=== PATIENT | female | born 1960 | race African-American/Black ===

== ENCOUNTER → 2017-02-17 | Outpatient (CLI) | payer SELFPAY ==
[~2017-02-17] MED LIST: ARTHROTEC 751 TABLET PO; ASPIRIN EC325 MG PO; BACTRIM,SEPT1 TABLET; BENICAR HCT 401 EACH PO; BENICAR40 MG PO; CALCIUM 500 MG1 EACH PO; CALCIUM CITRAT1 EA18 PO; CALCIUM/MAGNES1 EACH PO; CARDIZEM90 MG PO; CELEBREX100 MG PO; CELEBREX200 MG PO; CELEXA40 MG PO; COLACE100 MG PO; ELAVIL10 MG PO; ENDOCET 5-3251 EACH PO; FLEXERIL10 MG PO; GLUCOPHAGE1000 MG PO; HYDROCHLOROTH12.5 M3 PO; IRON325 MG PO; JANUMET 50/11 TABLET PO; KEFLEX500 MG PO; LEXAPRO20 MG PO; LOVENOX40 MG/0.4 SC; MITRAZOL 2% CRE45 GM PO; MULTIPLE VITAM1 EAC1 PO; NEXIUM40 MG PO; NORVASC10 MG PO; OXYCODONE-APAP1 EACH PO; PEPCID20 MG PO; PEPCID40 MG PO; PERCOCET 5/31 TABLET PO; PROTONIX40 MG PO; PROVENTIL HFA6.7 GM IH; SENNA PLUS TAB1 EACH PO; SINGULAIR10 MG PO; TRAZODONE HCL50 MG PO; VITAMIN B-6100 MG PO; VITAMIN D1000 INTUN PO; VITAMIN D2000 UNIT PO; ZOCOR20 MG PO; ZOVIRAX800 M1 PO; ZYRTEC10 M3 PO
== END | disposition home or self-care (01) ==
LOC: RAD 13:34
DX: M19.042 Primary osteoarthritis, left hand (principal); Z98.890 Other specified postprocedural states
CPT/HCPCS: 73130

== ENCOUNTER → 2017-03-06 | Outpatient (CLI) | payer SELFPAY | END | disposition home or self-care (01) | LOC: RAD 14:23 | DX: R05 Cough (principal); R06.2 Wheezing | CPT/HCPCS: 71020 ==

== ENCOUNTER → 2017-04-24 | Outpatient (CLI) | payer SELFPAY | END | disposition home or self-care (01) | LOC: RAD 13:00 | DX: E04.2 Nontoxic multinodular goiter (principal) | CPT/HCPCS: 73030; 76536 ==

== ENCOUNTER → 2017-05-01 | Outpatient (CLI) | payer SELFPAY | END | disposition home or self-care (01) | LOC: MRI 13:01 → RAD 13:30 → MRI 13:30 | DX: S46.012D Strain of muscle(s) and tendon(s) of the rotator cuff of left shoulder, subsequent encounter (principal); S46.212D Strain of muscle, fascia and tendon of other parts of biceps, left arm, subsequent encounter; M75.82 Other shoulder lesions, left shoulder | CPT/HCPCS: 73221 ==

== ENCOUNTER → 2018-03-05 | Outpatient (CLI) | payer SELFPAY | END | disposition home or self-care (01) | LOC: RAD 15:49 | DX: M18.11 Unilateral primary osteoarthritis of first carpometacarpal joint, right hand (principal) | CPT/HCPCS: 73130 ==